=== PATIENT | female | born 1970 | race Caucasian/White ===

== ENCOUNTER 2017-11-29 01:57 | Emergency (ER) | payer MEDICARE, MEDICAID ==
[2017-11-29] MEDS ORDERED: KETOROLAC 30 MG/ML VIAL IM ONE (02:14)
--- NOTE | 2017-11-29 02:20 | Emergency Department Record ---
History of Present Illness - General Chief Complaint: Back Pain/Injury Stated Complaint: BACK PAIN Time Seen by Provider: 11/29/17 02:14 Source: Patient Mode of Arrival: Ambulatory Limitations: No limitations - History of Present Illness Initial Comments: 47 yo female presents to ED for evaluation of low back pain symptoms. Patient reports a history of chronic back pain symptoms, and reports that she began seeing a new PCP who took her off several medications except for [place], Lyrica, and Zanaflex for her chronic pain symptoms. Patient denies new injury, fevers, chills, or lower extremity weakness symptoms. Patient denies lower extremity weakness or numbness over the groin region. MD Complaint: Back pain Onset/Timin -: Days(s) Similar Symptoms Previously: Yes Severity: Moderate Quality: Aching Consistency: Constant Improves With: None Worsens With: Movement, Walking Associated Symptoms: Denies other symptoms Treatment Prior to Arrival Comment:: norco and lyrica and muscle relaxers. - Related Data Home Medications Medication Instructions Recorded Confirmed Last Taken Citalopram Hydrobromide 20 mg PO DAILY 11/29/17 11/29/17 Unknown [Citalopram HBr] Pregabalin [Lyrica] 50 mg PO DAILY 11/29/17 11/29/17 Unknown Tizanidine HCl 4 mg PO DAILY 11/29/17 11/29/17 Unknown Allergies Allergy/AdvReac Type Severity Reaction Status Date / Time Penicillins Allergy Severe HIVES Unverified 01/19/16 13:03 morphine Allergy Intermediate VOMITING Unverified 01/19/16 13:03 Travel Screening - Travel/Exposure Within Last 30 Days Have you traveled within the last 30 days?: No - Travel/Exposure Within Last Year Have you traveled outside the [place] in the last year?: No - Additonal Travel Details Have you been exposed to anyone with a communicable illness?: No - Travel Symptoms Symptom Screening: None Review of Systems Constitutional: Denies: Chills, Fever, Malaise, Night sweats Eyes: Denies: Eye discharge, Eye pain ENT: Denies: Congestion, Ear pain, Epistaxis Respiratory: Denies: Cough, Dyspnea Cardiovascular: Denies: Chest pain, Dyspnea on exertion Endocrine: Denies: Fatigue, Heat or cold intolerance Gastrointestinal: Denies: Abdominal pain, Nausea, Vomiting Genitourinary: Denies: Incontinence, Retention Musculoskeletal: Reports: Back pain. Denies: Arthralgia, Gout, Joint swelling Skin: Denies: Bruising, Change in color Neurological: Denies: Abnormal gait, Confusion, Headache, Seizure Psychiatric: Denies: Anxiety Hematological/Lymphatic: Denies: Anemia, Blood Clots Past Medical History - SOCIAL HISTORY Smoking Status: Current every day smoker Alcohol Use: None Drug Use: None - RESPIRATORY Hx Respiratory Disorders: Yes Hx Asthma: Yes - CARDIOVASCULAR Hx Cardio Disorders: Yes Hx Chest Pain: Yes Hx Hypertension: No - NEURO Hx Neuro Disorders: Yes Hx Headaches: Yes - GI Hx GI Disorders: Yes Hx Reflux: No - Hx Genitourinary Disorders: No - ENDOCRINE Hx Endocrine Disorders: Yes Hx Diabetes: No Hx Thyroid Disease: Yes - MUSCULOSKELETAL Hx Musculoskeletal Disorders: Yes Comment:: spinabifada, degenerative disc disease - PSYCH Hx Psych Problems: Yes Hx Anxiety: Yes Hx Depression: Yes - HEMATOLOGY/ONCOLOGY Hx Hematology/Oncology Disorders: No Family Medical History Any Significant Family History?: No Hx Heart Disease: Father, Mother Hx HTN: Father, Mother Physical Exam - General General Appearance: Alert, Oriented x3, Cooperative, No acute distress, Other ( well appearing on examination, no distress on exam) Limitations: No limitations - Head Head exam: Atraumatic, Normocephalic, Normal inspection Head exam detail: negative: Abrasion, Contusion, Thompson's sign, General tenderness, Hematoma, Laceration - Eye Eye exam: Normal appearance. negative: Conjunctival injection, Periorbital swelling, Periorbital tenderness, Scleral icterus - ENT Ear exam: negative: Auricular hematoma, Auricular trauma Nasal Exam: negative: Active bleeding, Discharge, Dried blood, Foreign body Mouth exam: negative: Drooling, Laceration, Muffled voice, Tongue elevation - Neck Neck exam: Normal inspection. negative: Meningismus, Tenderness - Respiratory Respiratory exam: Normal lung sounds bilaterally. negative: Rales, Respiratory distress, Rhonchi, Stridor - Cardiovascular Cardiovascular Exam: Regular rate, Normal rhythm, Normal heart sounds - GI/Abdominal GI/Abdominal exam: Soft. negative: Rebound, Rigid, Tenderness - Rectal Rectal exam: Deferred - exam: Deferred - Extremities Extremities exam: Normal inspection. negative: Calf tenderness, Pedal edema, Tenderness - Back Back exam: Reports: Other (Patient easily sits up from reclining position, no pain with palpation on examination). Denies: CVA tenderness (R), CVA tenderness (L), Paraspinal tenderness, Rash noted, Tenderness - Neurological Neurological exam: Alert, Normal gait, Oriented X3 - Psychiatric Psychiatric exam: Normal affect, Normal mood - Skin Skin exam: Normal color. negative: Abrasion Type of lesion: negative: abrasion Course Vital Signs 11/29/17 02:02 Temperature 98.6 F Pulse Rate [ 72 Pulse Ox Probe] Respiratory 20 Rate Blood Pressure 133/75 [Left Arm] Pulse Ox 97 - Reevaluation(s) Reevaluation #1: 11/29/17 02:30 Toradol was administered in ED. Patient has no clinical evidence for spinal cord compression syndrome on examination, and appears stable for discharge with instructions to continue her current medication regimen for her chronic low back pain symptoms. Disposition Disposition: Discharge Clinical Impression: Chronic back pain Qualifiers: Back pain location: low back pain Back pain laterality: unspecified Sciatica presence: without sciatica Qualified Code(s): M54.5 - Low back pain Disposition: Home, Self-Care Condition: (2) Stable Instructions: Chronic Back Pain (ED) Additional Instructions: Return to ED if your symptoms worsen or if you have any concerns. Follow-up with your family doctor in 1-3 days for further evaluation of your chronic back pain symptoms. Forms: Patient Portal Access Time of Disposition: 02:20 Quality - Quality Measures Quality Measures: N/A - Blood Pressure Screening Does Patient Have Any of the Following: No Blood Pressure Classification: Pre-Hypertensive BP Reading Systolic Measurement: 133 Diastolic Measurement: 75 Screening for High Blood Pressure: < Pre-Hypertensive BP, F/U Documented > [ G8950] Pre-Hypertensive Follow-up Interventions: Referral to alternative/primary care provider.
== END 2017-11-29 02:34 | disposition home or self-care (01) ==
LOC: ER 01:57
DX: M54.5 Low back pain (principal); F17.210 Nicotine dependence, cigarettes, uncomplicated
CPT/HCPCS: 96372; 99283; J1885

== ENCOUNTER 2018-03-10 23:41 | Emergency (ER) | payer MEDICARE, MEDICAID ==
[2018-03-10] MEDS ORDERED: CLINDAMYCIN 150 MG CAP PO ONE (23:54)
--- NOTE | 2018-03-10 23:56 | Emergency Department Record ---
History of Present Illness - General Chief complaint: Dental Stated complaint: LT SIDED TOOTHACHE Time Seen by Provider: 03/10/18 23:51 Source: Patient Mode of Arrival: Ambulatory Limitations: No limitations - History of Present Illness Initial comments: 47 yo female presents to ED for evaluation of pain to the left lower jaw that began yesterday. Patient reports previous history of dental cavity to the affected tooth 6 months ago that was filled by her dentist. Patient denies fevers, chills, or facial swelling symptoms. Patient reports that she has been taking [place] (normally for her back pain symptoms) and Tylenol for her pain at home. MD complaint: Tooth pain Onset/Timin -: Days(s) Location: Tooth # 1 - Dental pain Severity: Moderate Severity scale (1-10): 8 Quality: Aching Consistency: Constant Improves with: None Worsens with: Eating Context- Dental: History of dental caries - Related Data Previous Rx's Medication Instructions Recorded Clindamycin HCl 300 mg PO QID #27 capsule 03/10/18 Allergies Allergy/AdvReac Type Severity Reaction Status Date / Time Penicillins Allergy Severe HIVES Verified 03/10/18 23:51 morphine Allergy Intermediate VOMITING Verified 03/10/18 23:51 Travel Screening - Travel/Exposure Within Last 30 Days Have you traveled within the last 30 days?: No - Travel/Exposure Within Last Year Have you traveled outside the [place] in the last year?: No - Additonal Travel Details Have you been exposed to anyone with a communicable illness?: No - Travel Symptoms Symptom Screening: None Review of Systems Constitutional: Denies: Chills, Fever, Malaise, Night sweats Eyes: Denies: Eye discharge, Eye pain ENT: Reports: Dental pain. Denies: Congestion, Ear pain Respiratory: Denies: Cough, Dyspnea Cardiovascular: Denies: Chest pain, Dyspnea on exertion Endocrine: Denies: Fatigue, Heat or cold intolerance Gastrointestinal: Denies: Abdominal pain, Nausea, Vomiting Genitourinary: Denies: Incontinence, Retention Musculoskeletal: Denies: Arthralgia, Back pain, Gout, Joint swelling Skin: Denies: Bruising, Change in color Neurological: Denies: Abnormal gait, Confusion, Headache, Seizure Psychiatric: Denies: Anxiety Hematological/Lymphatic: Denies: Anemia, Blood Clots Past Medical History - SOCIAL HISTORY Smoking Status: Current every day smoker Alcohol Use: None Drug Use: None - RESPIRATORY Hx Respiratory Disorders: Yes Hx Asthma: Yes - CARDIOVASCULAR Hx Cardio Disorders: Yes Hx Chest Pain: Yes Hx Hypertension: No - NEURO Hx Neuro Disorders: Yes Hx Headaches: Yes - GI Hx GI Disorders: Yes Hx Reflux: No - Hx Genitourinary Disorders: No - ENDOCRINE Hx Endocrine Disorders: Yes Hx Diabetes: No Hx Thyroid Disease: Yes - MUSCULOSKELETAL Hx Musculoskeletal Disorders: Yes Comment:: spinabifada, degenerative disc disease - PSYCH Hx Psych Problems: Yes Hx Anxiety: Yes Hx Depression: Yes - HEMATOLOGY/ONCOLOGY Hx Hematology/Oncology Disorders: No Family Medical History Any Significant Family History?: Yes Hx Heart Disease: Father, Mother Hx HTN: Father, Mother Physical Exam - General General Appearance: Alert, Oriented x3, Cooperative, Mild distress Limitations: No limitations - Head Head exam: Atraumatic, Normocephalic, Normal inspection Head exam detail: negative: Abrasion, Contusion, Thompson's sign, General tenderness, Hematoma, Laceration - Eye Eye exam: Normal appearance. negative: Conjunctival injection, Periorbital swelling, Periorbital tenderness, Scleral icterus - ENT Ear exam: negative: Auricular hematoma, Auricular trauma Nasal Exam: negative: Active bleeding, Discharge, Dried blood, Foreign body Mouth exam: negative: Drooling, Laceration, Muffled voice, Tongue elevation Teeth exam: Dental tenderness # Throat exam: negative: Tonsillar erythema, Tonsillomegaly, R peritonsillar mass , L peritonsillar mass Image of Mouth/Teeth: 1 - TTP with decay at the base of the tooth, no gingival abscess is present on examination. - Neck Neck exam: Normal inspection. negative: Meningismus, Tenderness - Respiratory Respiratory exam: Normal lung sounds bilaterally. negative: Rales, Respiratory distress, Rhonchi, Stridor - Cardiovascular Cardiovascular Exam: Regular rate, Normal rhythm, Normal heart sounds - GI/Abdominal GI/Abdominal exam: Soft. negative: Rebound, Rigid, Tenderness - Rectal Rectal exam: Deferred - exam: Deferred - Extremities Extremities exam: Normal inspection. negative: Calf tenderness, Pedal edema, Tenderness - Back Back exam: Denies: CVA tenderness (R), CVA tenderness (L) - Neurological Neurological exam: Alert, Normal gait, Oriented X3 - Psychiatric Psychiatric exam: Normal affect, Normal mood - Skin Skin exam: Normal color. negative: Abrasion Type of lesion: negative: abrasion Course Vital Signs 03/10/18 23:43 Temperature 98.4 F Pulse Rate 78 Respiratory 20 Rate Blood Pressure 114/73 Pulse Ox 99 - Reevaluation(s) Reevaluation #1: 03/10/18 23:59 Patient was seen and examined, history and physical examination appears c/w dental caries Will initiate Clindamycin for her symptoms for treatment of a likely apical dental abscess. patient was instructed to d/c Tylenol and take Ibuprofen as directed in addition to her [place] for her pain symptoms. Patient was instructed to follow-up with her Dentist Monday after the holiday. Disposition Disposition: Discharge Clinical Impression: Pain, dental Disposition: Home, Self-Care Condition: (2) Stable Instructions: Dental Abscess (ED) Additional Instructions: Return to ED if your symptoms worsen or if you have any concerns. Clindamycin as directed. Follow-up with your Dentist in 2-3 days as directed. Prescriptions: Clindamycin HCl 300 mg PO QID #27 capsule Forms: Patient Portal Access Time of Disposition: 23:56 Quality - Quality Measures Quality Measures: N/A - Blood Pressure Screening Does Patient Have Any of the Following: No Blood Pressure Classification: Normal BP Reading Systolic Measurement: 114 Diastolic Measurement: 73 Screening for High Blood Pressure: < Normal BP, F/U Not Required > [G8783]
== END 2018-03-11 00:09 | disposition home or self-care (01) ==
LOC: ER 23:41
DX: K02.9 Dental caries, unspecified (principal); F17.210 Nicotine dependence, cigarettes, uncomplicated
CPT/HCPCS: 99282

== ENCOUNTER 2018-05-21 14:58 | Emergency (ER) | payer MEDICAID, MEDICARE ==
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
--- NOTE | 2018-05-22 10:50 | RADIOLOGY REPORT ---
EXAM: LUMBAR SPINE HISTORY: BACK PAIN. TECHNIQUE: AP and lateral views of the lumbosacral spine were performed. FINDINGS: No evidence of fracture. No disk space narrowing. No spondylolysis or spondylolisthesis. IMPRESSION: NEGATIVE LUMBOSACRAL SPINE EXAMINATION. JOB NUMBER: [id number] MTDD
== END 2018-05-21 16:17 | disposition home or self-care (01) ==
LOC: ER 14:58
DX: G89.11 Acute pain due to trauma (principal); M54.5 Low back pain; I10 Essential (primary) hypertension; F17.210 Nicotine dependence, cigarettes, uncomplicated; V44.5XXA Car driver injured in collision with heavy transport vehicle or bus in traffic accident, initial encounter
CPT/HCPCS: 72110; 99283